=== PATIENT | female | born 1950 | race Hispanic/Latino ===

== ENCOUNTER 2018-07-05 08:47 | Outpatient (CLI) | payer MEDICARE ==
--- NOTE | 2018-07-11 16:56 | MMO ---
Bilateral MAMMO Bilat Screen [facility]. CLINICAL HISTORY: Patient is 68 years old and is seen for screening. The patient has no family history of breast cancer. The patient has no personal history of cancer. VIEWS: The views performed were: bilateral craniocaudal with tomosynthesis and bilateral mediolateral oblique with tomosynthesis. FILMS COMPARED: The present examination has been compared to a prior imaging study performed at MAMMOGRAM FINDINGS: There are scattered fibroglandular densities. There are vascular calcifications seen in both breasts. There are no suspicious masses, suspicious calcifications, or new areas of architectural distortion. IMPRESSION: A ROUTINE FOLLOW-UP MAMMOGRAM IN 1 YEAR IS RECOMMENDED. THE RESULTS OF THIS EXAM WERE SENT TO THE PATIENT. ACR BI-RADS Category 2 - Benign finding MAMMOGRAPHY NOTE: 1. A negative mammogram report should not delay a biopsy if a dominant of clinically suspicious mass is present. 2. Approximately 10% to 15% of breast cancers are not detected by mammography. 3. Adenosis and dense breasts may obscure an underlying neoplasm.
== END 2018-07-05 08:48 | disposition home or self-care (01) ==
LOC: BICMAMMO 08:47
PROVIDERS: ATTEND Family Medicine
DX: Z12.31 Encounter for screening mammogram for malignant neoplasm of breast (principal)
CPT/HCPCS: 77063; 77067

== ENCOUNTER 2018-07-05 12:24 | Day surgery (SDC) | payer MEDICARE ==
--- NOTE | 2018-06-21 11:17 | HP ---
HISTORY OF PRESENT ILLNESS: Altagracia Santana is a 68-year-old Malian-speaking only female, who presents with her son, who is translating for her. The patient complains of pain in the umbilical area when bending over. She feels a painful mass. She has incarcerated umbilical hernia, probably incarcerated fat. She has a small upper abdominal diastasis recti, which is asymptomatic. Plan and recommendation is robot laparoscopic mesh repair, umbilical hernia outpatient. They will call to schedule this. ALLERGIES: NONE. SOCIAL HISTORY: Tobacco, none. Alcohol, none. MEDICATIONS: None. PAST MEDICAL HISTORY: Arthritis. PAST SURGICAL HISTORY: Percutaneous embolization of cerebral aneurysm 2008, appendectomy, open incisions right lower quadrant 2009, knee surgery, knee replacement 2016, total abdominal hysterectomy, bilateral salpingo-oophorectomy 2000 after tubal ligation prior. FAMILY HISTORY: Noncontributory. REVIEW OF SYSTEMS: Ten-point noncontributory. She has had a colonoscopy about 5 years ago. PHYSICAL EXAMINATION: VITAL SIGNS: 138/65, 68, 97.9 degrees, 134 pounds, 5 feet 3 inches. HEAD, EARS, EYES, NOSE, AND THROAT: Unremarkable. LUNGS: Clear to auscultation. CARDIAC: Rhythm without murmur or gallop. ABDOMEN: Soft, nondistended, and nontender except her umbilical area where she has incarcerated umbilical hernia that is tender and painful. I cannot reduce it. I think I see a faint scar in the right lower quadrant. There is no indication for any hernia near this. She has a Pfannenstiel incision suprapubic and no hernias present when patient examined standing on Valsalva and supine Valsalva. EXTREMITIES: Unremarkable. No ankle edema. No lymphadenopathy in neck, axilla, or groins. NEUROLOGIC: Neurologically intact. No focal deficit. ASSESSMENT AND PLAN: Incarcerated umbilical hernia, painful. This cause her pain such that she cannot bend over and put her socks and shoes on. She has to have her family do that. We will plan robot mesh repair umbilical hernia. She understands risks and benefits, and consents. Job ID: [id number]
[2018-07-04 13:05] VITALS: BMI 24.3
[2018-07-05] MEDS ORDERED: Rocuronium Bromide 10 MG/ML (10ML VIAL) ONE (13:38)
[2018-07-05] MEDS ORDERED: Dexamethasone 20 MG/5 ML VIAL ONE (13:38)
[2018-07-05] MEDS ORDERED: Glycopyrrolate 0.2 MG/ML 5 ML SYRINGE ONE (13:38)
[2018-07-05] MEDS ORDERED: Lidocaine 1% PF 5 ML VIAL ONE (13:38)
[2018-07-05] MEDS ORDERED: diphenhydrAMINE 50 MG/ML VIAL ONE (13:38)
[2018-07-05] MEDS ORDERED: Metoclopramide HCl 10 MG/2 ML VIAL ONE (13:38)
[2018-07-05] MEDS ORDERED: Ondansetron PF 4 MG/2 ML Vial ONE (13:38)
[2018-07-05] MEDS ORDERED: ePHEDrine 50 MG/ML VIAL ONE (13:38)
[2018-07-05] MEDS ORDERED: PROPOFOL 200 MG/20 ML VIAL ONE (13:38)
[2018-07-05] MEDS ORDERED: Ketorolac Tromethamine 30 MG/ML VIAL ONE (14:01)
--- NOTE | 2018-07-05 14:02 | RAD ---
CHEST TWO VIEWS: HISTORY: Preop for umbilical hernia. COMPARISON: None. FINDINGS: FINDINGS: Two views of the chest show normal sized cardiomediastinal silhouette. There is no evidence of consol idation, mass, or pleural effusion. Degenerative changes are seen in the spine. IMPRESSION: No evidence of acute cardiopulmonary disease. POS: [facility]
[2018-07-05 14:08] LABS: #Basophils 0.1 thou/uL (0.0-0.2); #Eosinphils 0.1 thou/uL (0.0-0.7); #Monocytes 0.4 thou/uL (0.11-0.59); #Neutrophils 3.3 thou/uL (1.40-6.50); %Basophils 1.3 % (0.0-1.0); %Eosinophils 1.6 % (0.0-10.0); %Lymphocytes 34.7 % (21.0-51.0); %Monocytes 6.5 % (0.0-10.0); %Neutrophils 55.9 % (42.0-75.0); Hemoglobin 13.2 g/dL (12.0-16.0); Mean Corpuscular HGB CONC 32.8 g/dL (32.0-36.0); Mean Corpuscular Hemoglobin 30.2 pg (27.0-31.0); Mean Corpuscular Volume 91.9 fL (78.0-98.0); Mean Platelet Volume 8.8 fL (7.4-10.4); Platelet Count 186 thou/uL (130-400); RBC Distribution Width 11.8 % (11.5-14.5); Red Blood Cell (RBC) Count 4.38 mill/uL (4.20-5.40); White Blood Cell (WBC) Count 5.9 thou/uL (4.8-10.8)
[2018-07-05 14:30] LABS: Anion Gap 10 mmol/L (10-20); BUN (Urea Nitrogen) 13 mg/dL (9.8-20.1); Calc. Creatinine Clearance 79 mL/min (70-130); Calcium 9.6 mg/dL (7.8-10.44); Carbon Dioxide 29 mmol/L (23-31); Chloride 104 mmol/L (98-107); Estimated GFR-MDRD Greater than 90; Glucose 97 mg/dL (80-115); Potassium 4.1 mmol/L (3.5-5.1); Sodium 139 mmol/L (136-145)
[2018-07-05] MEDS ORDERED: Bupivacaine/Epinephrine 0.25% 30 ML VIAL ONE (15:54)
[2018-07-05] MEDS ORDERED: Fentanyl 100 MCG/2 ML VIAL ONE (16:34)
[2018-07-05] MEDS ORDERED: HYDROcodone/Acetaminophen 5/325 mg Tablet ONE (19:58)
--- NOTE | 2018-07-05 21:57 | OP ---
DATE OF PROCEDURE: 07/05/2018 PREOPERATIVE DIAGNOSIS: Umbilical hernia, symptomatic. POSTOPERATIVE DIAGNOSIS: Umbilical hernia, symptomatic. PROCEDURES PERFORMED: Robot 11.4 cm Ventralight mesh repair of umbilical hernia. ANESTHESIA: General, local 0.5% Marcaine with epinephrine 30 mL, total volume used. DESCRIPTION OF PROCEDURE: The patient was taken to the operating room where under general anesthesia, Strickland catheter was placed at the beginning of the procedure and removed at the end. Abdomen was prepared with ChloraPrep, draped in routine fashion. Local anesthetic of 0.5% Marcaine with epinephrine was infiltrated in the skin and subcutaneous tissue about each port site. Left subxiphoid incision was made and pneumoperitoneum to 15 mmHg was obtained with a Veress needle, replaced with 11 port. Bilateral far lateral right and left subcostal incisions were made and an 8-mm port was placed. A robot was docked and instruments inserted, and robot repair of umbilical hernia undertaken. There was incarcerated fat in this umbilical hernia defect and peritoneum was dissected free. The incarcerated fat removed and the fascial defect was closed with continuous suture of #0 V-Loc. Pneumoperitoneum was reduced to 9 mmHg and mesh inserted and oriented properly for the coated side against the viscera and the mesh was secured to the abdominal wall with continuous suture of 2-0 V-Loc. All needles were removed. Pneumoperitoneum was reduced. All instruments were removed and all skin incisions were approximated with interrupted subdermal 4-0 Monocryl and Hennessey glue applied. Job ID: [id number]
== END 2018-07-05 20:25 | disposition home or self-care (01) ==
LOC: SDC 12:24
PROVIDERS: ATTEND Specialist
PROC: 0WUF4JZ Supplement Abdominal Wall with Synthetic Substitute, Percutaneous Endoscopic Approach (ICD-10-PCS; principal; 2018-07-05)
DX: K42.0 Umbilical hernia with obstruction, without gangrene (principal); M19.90 Unspecified osteoarthritis, unspecified site
CPT/HCPCS: 36415; 71046; 80048; 85025; 93005; 93010; C1781; J0131; J0690; J1100; J1200; J1885; J2001; J2405; J2704; J2765; J3010; J3490

== ENCOUNTER 2019-06-08 14:09 | Observation (INO) | payer MEDICARE ==
[~2019-06-08 14:09] MED LIST: Iopamidol 370 76% 100 ML VIAL ONE
--- NOTE | 2019-06-08 14:32 | CT ---
Exam: Brain CT without IV contrast: HISTORY: Level One stroke, headaches since an injury from a fall one week ago tingling on side of body history of brain aneurysm FINDINGS: There is evidence for aneurysm coiling material in the region of the left temporal lobe. A prior old exam from 01/18/2009 demonstrated left-sided subarachnoid hemorrhage. There is no evidence for acute hemorrhage. No mass effect or midline shift. Sinuses and mastoids are clear. IMPRESSION: Evidence for prior aneurysm coiling in the left temporal lobe region. No mass or bleed or other acute process. Findings discussed with Dr. Mckeon in the emergency room at 2:25 PM CODE CR
[2019-06-08 14:43] LABS: #Eosinphils 0.1 thou/uL (0.0-0.7); #Lymphocytes 1.6 thou/uL (1.20-3.40); #Monocytes 0.4 thou/uL (0.11-0.59); #Neutrophils 5.2 thou/uL (1.40-6.50); %Basophils 0.2 % (0.0-1.0); %Eosinophils 1.8 % (0.0-10.0); %Lymphocytes 22.1 % (21.0-51.0); %Monocytes 4.8 % (0.0-10.0); %Neutrophils 71.1 % (42.0-75.0); Hemoglobin 11.8 g/dL (12.0-16.0); Mean Corpuscular HGB CONC 33.6 g/dL (32.0-36.0); Mean Corpuscular Hemoglobin 30.4 pg (27.0-31.0); Mean Corpuscular Volume 90.4 fL (78.0-98.0); Mean Platelet Volume 8.4 fL (7.4-10.4); Platelet Count 249 thou/uL (130-400); RBC Distribution Width 12.6 % (11.5-14.5); Red Blood Cell (RBC) Count 3.89 mill/uL (4.20-5.40); White Blood Cell (WBC) Count 7.3 thou/uL (4.8-10.8)
--- NOTE | 2019-06-08 14:58 | CT ---
EXAM: CT ANGIOGRAM OF THE HEAD AND NECK INDICATION: Dull headache since fall one week ago. Tingling on one side of the body. History of aneur ysm. COMPARISON: None TECHNIQUE: CT angiogram of the head and neck are performed in the axial plane. Three-dimensional refo rmatted images are submitted for interpretation. FINDINGS: CTA OF THE HEAD WITH AND WITHOUT CONTRAST: POSTCONTRAST CT OF BRAIN: Pathologic enhancement: No pathologic enhancement the brain. Postcontrast soft tissue neck CT: Sinuses: Adequate aeration. Orbits: Bilateral ocular lenses are appropriately located. Both globes are intact. Retrobulbar fat is preserved. Symmetric attenuation the optic nerves and ocular rectus muscles. Salivary glands:Symmetric attenuation Thyroid gland: Slightly heterogeneous. Lymph nodes: No evidence of lymphadenopathy by size criteria. Paraspinal muscles: Symmetric attenuation of the sternocleidomastoid muscles. Appropriate attenuation of the paraspinal muscles. Subcutaneous emphysema and induration in the right periclavicular region. Correlate for attempt at recent vascular access. Cervical spine:Multilevel degenerative changes of the cervical spine. Varying degrees of central samuel l stenosis and neural foraminal narrowing due to degenerative change. No fracture. Upper mediastinum and lung apices: No acute abnormality. Chronic lung parenchymal changes. CTA OF THE NECK WITH CONTRAST: Aorta: Atherosclerosis of the aortic knob. Right carotid artery: Right carotid artery origin, common carotid artery, carotid bifurcation and int ernal carotid artery of appropriate enhancement and luminal diameter. There is calcified plaque in the right carotid bifurcation and proximal internal carotid artery. Additional minimal calcified plaq ue in the distal common carotid artery. No significant stenosis based upon NASCET criteria Left carotid: Left carotid artery origin is appropriate enhancement and luminal diameter. The left co mmon carotid, carotid bifurcation and internal cardioverter appropriate enhancement and luminal diameter. No significant stenosis based upon NASCET criteria Subclavian arteries:Patent and symmetric Vertebral arteries:Left vertebral artery is patent throughout its course in the neck. Diminutive righ t vertebral artery. CTA OF THE BRAIN: Intracranial internal carotid arteries:Appropriate enhancement and luminal diameter Anterior circulation: Appropriate enhancement and luminal diameter the A1 and M1 segments. 0.7 x 0.7: No mass in the left M1 trifurcation. No obvious residual aneurysm. Beam attenuation artifact limits evaluation. Intracranial vertebral arteries: Right vertebral artery appears of the PICA terminus. Left vertebral artery appears to be the main if not sole supplying vessel to the basilar artery. Posterior circulation: Appropriate enhancement and luminal diameter the basilar artery. Appropriate e nhancement and luminal diameter bilateral P1 segments IMPRESSION: 1. No hemodynamically significant stenosis, occlusion or aneurysmal formation. Likely. Additional fin dings as above. 3. Results study discussed with Dr. Mckeon 06/08/2019 2:53 PM code CR
--- NOTE | 2019-06-08 15:03 | RAD ---
Exam: Chest one view HISTORY:Altered mental status Comparison: 01/22/2009 FINDINGS: Cardiac silhouette:Cardiomegaly. Aorta: Unremarkable Pulmonary vessels: Normal Costophrenic angles: Clear LUNGS: No masses or consolidation. Pneumothorax: None Osseous abnormalities: None IMPRESSION: No acute cardiopulmonary process.
[2019-06-08 15:06] LABS: ALT (SGPT) 13 U/L (8-55); AST (SGOT) 19 U/L (5-34); Alkaline Phosphatase 114 U/L (40-110); Anion Gap 15 mmol/L (10-20); BUN (Urea Nitrogen) 14 mg/dL (9.8-20.1); Bilirubin, Total 0.5 mg/dL (0.2-1.2); CK (CPK) 114 U/L (29-168); Calc. Creatinine Clearance 0 mL/min (70-130); Calcium 9.5 mg/dL (7.8-10.44); Carbon Dioxide 27 mmol/L (23-31); Chloride 105 mmol/L (98-107); Estimated GFR-MDRD 90; Globulin 3.1 g/dL (2.4-3.5); Glucose 104 mg/dL (80-115); Lipase 30 U/L (8-78); Potassium 3.8 mmol/L (3.5-5.1); Protein, Total 7.1 g/dL (6.0-8.3); Sodium 143 mmol/L (136-145)
[2019-06-08] MEDS ORDERED: Metoclopramide HCl 10 MG/2 ML VIAL ONE (16:05)
[2019-06-08] MEDS ORDERED: Aspirin Chewable 81 MG TAB ONE (16:05)
[2019-06-08] MEDS ORDERED: Acetaminophen 500 MG TAB ONE (16:05)
[2019-06-08] MEDS ORDERED: diphenhydrAMINE 50 MG/ML VIAL ONE (16:05)
[2019-06-08] MEDS ORDERED: Ondansetron PF 4 MG/2 ML Vial IVP PRN (17:50)
[2019-06-08] MEDS ORDERED: Ondansetron ODT 4 MG TAB SL PRN (17:50)
[2019-06-08 18:12] VITALS: BMI 22.5
[2019-06-08] MEDS ORDERED: traMADol HCl 50 MG TAB PO PRN (20:09)
--- NOTE | 2019-06-08 22:23 | HP ---
TIME OF ASSESSMENT: 1800 hours. CHIEF COMPLAINT: Frontal headache with left arm heaviness. PRIMARY CARE PHYSICIAN: Honey Leyva MD HISTORY OF PRESENT ILLNESS: Ms. Macias is a pleasant Polish-speaking 69-year -old woman, who presents to the emergency department due to a persisting frontal headache since yesterday evening. The patient states the pain gradually became worse today and states she had some blurred vision associated with the headache. She states she was concerned due to a history of a brain aneurysm for which she had percutaneous embolization in 2008. This prompted her to come in and seek medical attention as the pain became a 7/10 in severity. She denies any associated nausea or vomiting. Denies any fever. Denies any facial numbness, weakness, or slurred speech. Reports noting while she was en route to the hospital a heaviness in the left upper extremity, but did not experience any numbness. Denies any lower extremity weakness or numbness. When she was treated in the emergency department, she states her symptoms improved and she is now asymptomatic but feels worn out. ED COURSE: In the emergency department, she was given extra strength Tylenol 1000 mg p.o., 500 mL of normal saline, Reglan, Benadryl and [address] of the head was done showing evidence for prior aneurysm coiling in the left temporal lobe region with no mass, bleed, or other acute process. This was compared to an old exam in December 2008, where she had a left-sided subarachnoid hemorrhage. No evidence for acute hemorrhage on imaging today. CT angiogram of the head and neck showed no hemodynamically significant stenosis , occlusion, or aneurysmal formation. An EKG was done, which was unremarkable. Laboratory studies showed a hemoglobin of 11.8, hematocrit 35.1, otherwise unremarkable. She was noted to have an alkaline phosphatase of 114. Renal function is normal. LFTs unremarkable. BNP 93.7, and troponin negative. PAST MEDICAL HISTORY: 1. Left subarachnoid hemorrhage in December 2008. 2. Arthritis. PAST SURGICAL HISTORY: 1. Total abdominal hysterectomy and bilateral salpingo-oophorectomy. 2. Right knee replacement. 3. Right arm rotator cuff repair. 4. Hernia repair. 5. Recent fracture requiring surgery of the right upper extremity. 6. 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 7. Umbilical hernia repair. SOCIAL HISTORY: The patient denies any tobacco use, alcohol consumption, or illicit drug use. She lives with her family and is fully independent. She mobilizes without the use of assistive devices. FAMILY HISTORY: Noncontributory. ALLERGIES: NO KNOWN DRUG ALLERGIES. CURRENT MEDICATIONS: 1. Tramadol. 2. Tylenol. PHYSICAL EXAMINATION: GENERAL: The patient appears fatigued, but is in no acute distress. VITAL SIGNS: Temperature 98.4, pulse 62, respirations 12, O2 saturation 98% on room air, blood pressure 123/57. HEENT: Normocephalic and atraumatic. Pupils are equal, round, and reactive to light. Sclerae are without icterus. Oropharynx is clear. NECK: Supple. LUNGS: Clear to auscultation bilaterally without any wheezes, rales, or rhonchi. CARDIAC: Regular rate and rhythm. ABDOMEN: Soft, nontender, nondistended. Normoactive bowel sounds present. No guarding or rigidity. No renal angle tenderness. EXTREMITIES: No lower leg swelling or edema. NEUROLOGIC: Alert and oriented x3. Facial movements normal. Facial sensation intact. Speech normal. Able to follow commands. Power 5/5 in upper and lower extremities. Normal muscle tone. No focal deficits on exam. SKIN: Warm and dry. INVESTIGATIONS: As mentioned above in HPI. IMPRESSION AND PLAN: Ms. Santana is a 69-year-old woman, who presents with complaints of a progressively worsening headache associated with left upper extremity heaviness. She is being admitted for management of the following. 1. Transient ischemic attack, rule out. The patient is currently asymptomatic. CT head showed no acute changes and CT angiogram was also unremarkable. There was a suggestion by the ED physician for MRI of the brain. The patient did not experience any neuro deficits, but did have some heaviness in the left arm that has fully resolved. She never experienced weakness or numbness. No slurred speech or facial weakness. Consult has been placed to Neuro. Further imaging as per other recommendation. The patient is being admitted to Stroke for continued observation and neuro checks. 2. Headache. Has fully resolved with medications given in the ED, which included Reglan, Benadryl, and Tylenol. 3. Right shoulder injury with recent surgery. We will continue tramadol for pain. 4. Gastrointestinal prophylaxis with famotidine. 5. Deep venous thrombosis prophylaxis. The patient is ambulatory. We will consult walking program. We will hold pharmacoprophylaxis. 6. Code status full. Surrogate decision maker is her son, Danish Santana. Case discussed with attending who agrees with plan of care as described above. Job ID: [id number] [facility]
[2019-06-09 05:21] LABS: Cardiac Risk 4.9 (Less than 4.5)
[2019-06-09] MEDS ORDERED: Famotidine 20 MG TAB PO SCH (09:00)
[2019-06-09] MEDS ORDERED: FLU VACC TS2019-20(65YR UP)/PF 180 MCG/0.5 ML SYRINGE IM ONE (09:00)
--- NOTE | 2019-06-09 13:54 | MRI ---
MRI BRAIN WITHOUT CONTRAST: HISTORY: TIA. FINDINGS: Correlation is made with the previous day's CT scan. No restricted diffusion is seen. There is blooming artifact due to aneurysm coiling material in the region of the left middle cranial fossa. No evidence of infarct, hemorrhage, midline shift, or abnor mal extraaxial fluid collections are seen. There are changes of mild chronic small-vessel ischemic d isease in the periventricular white matter. The ventricular size is normal and the basilar cisterns are patent. IMPRESSION: No evidence of acute intracranial process. POS: [facility]
[2019-06-09 15:46] VITALS: BP 107/63; TEMP 99
--- NOTE | 2019-06-09 16:27 | CON ---
DATE OF CONSULTATION: 06/09/2019 CONSULTING PHYSICIAN: Hospitalist Service. IMPRESSION: Headache, likely secondary to Ultram. PLAN: 1. Discontinue Ultram. 2. Follow up with her Orthopedic Surgeon. Follow up on the pain medications. HISTORY OF PRESENT ILLNESS: Ms. Max Macias is a 69-year-old woman, who presented to the emergency room with acute onset of headache and a feeling that her left shoulder was a bit heavy. She also complained of some blurred vision. She had been using Ultram for pain relief following some recent shoulder problem. She has a past history of cerebral aneurysm with prior embolization in 2008. Pain level was reported to be 7/10. There was no fever or other constitutional symptoms. She did not have any slurred speech or other focal neurologic complaints. Her initial CT of the brain was unremarkable as well as a CT angiogram. Followup MRI did not reveal any evidence of an acute ischemic event. Her headache has since resolved. She has not had any fever since admission. She is otherwise without any particular complaints. PAST MEDICAL HISTORY: Otherwise, unremarkable. ALLERGIES: NONE. SOCIAL HISTORY: No tobacco or alcohol. FAMILY HISTORY: Noncontributory. REVIEW OF SYSTEMS: Ten-system review of systems is otherwise unremarkable. PHYSICAL EXAMINATION: VITAL SIGNS: Blood pressure 103/60, pulse 66, respirations 26, and temperature 99.2. HEENT: Pupils are equal. Conjunctivae are clear. Oropharynx clear. Cranium; normocephalic and atraumatic. NECK: Supple. EXTREMITIES: No cyanosis. NEUROLOGIC: She is alert and cooperative. Her speech is fluent and clear. She has no focal deficits. No abnormal movements were seen. She can walk independently. SUMMARY: This is a 69-year-old woman, who came in with complaints of a fairly significant headache. Ultram is reported to precipitate headache in some patient. Her workup is otherwise negative. I think that she can be discharged home. Job ID: [id number]
--- NOTE | 2019-06-10 14:58 | EKG ---
Test Reason : Blood Pressure : / mmHG Vent. Rate : 065 BPM Atrial Rate : 065 BPM P-R Int : 158 ms QRS Dur : 082 ms QT Int : 380 ms P-R-T Axes : 035 009 065 degrees QTc Int : 395 ms Normal sinus rhythm Normal ECG Confirmed by NEIDA HERNANDEZ, J CARLOS ([id number]), multimedia editor MARIA DEL CARMEN COFFEY ([id number]) on 06/10/2019 2:58:29 PM Referred By: Confirmed By:J CARLOS CARRASQUILLO MD
--- NOTE | 2019-06-12 08:53 | DIS ---
DATE OF ADMISSION: 06/08/2019 DATE OF DISCHARGE: 06/09/2019 DISCHARGE DIAGNOSES: 1. Headache possibly secondary to migraine versus tramadol 2. Anemia 3. Elevated ALP CONSULTATIONS: Dilan Parker with Neurology. PROCEDURES: None. BRIEF HISTORY OF PRESENT ILLNESS: This is a 69-year-old female with a past medical history of a brain aneurysm status post coiling, who presented to the emergency room with severe headache. The patient states that her headache woke her up from her sleep. She said it was about a 7/10. She took some Tylenol with mild relief. She then took tramadol and her headache continued to get worse. She did report some photophobia, but had no nausea or vomiting. She also had some arm heaviness in her left arm; however, she was still able to lift it up without any issues. She had no slurred speech. No difficulty walking. She does have a fracture in her right arm that was recently operated on. The patient states that her headache lasted until she received Reglan, Benadryl, and aspirin in the emergency room. She states that her headache had gone down to 3/10. She was admitted for TIA workup. She did have a CT scan of her head in the ER, which was unremarkable. HOSPITAL COURSE: Headache, most likely secondary to migraine versus adverse reaction from tramadol: CTA of her head and neck showed no significant stenosis. MRI was normal with no evidence of a stroke. The patient did not have any focal neurological deficits on exam. On discharge, she was seen by Neurology, who recommended the patient discontinue her Ultram due to possible adverse reaction. There was no concern for TIA. She did have an echo, which showed no thrombus. She will follow up with her PCP in a week. She was advised to make a journal of headache triggers to avoid potential headaches in the future. She is advised she can take ibuprofen p.r.n. for her headaches. Anemia: The patient did have a hemoglobin of 11.8. She denies any dizziness. She can have a repeat CBC as an outpatient with her PCP. Elevated alkaline phosphatase: This is noted to be 114. This can be repeated as an outpatient. She denies any abdominal pain on the day of discharge. DISCHARGE PHYSICAL EXAMINATION: VITAL SIGNS: Temperature 99, heart rate 65, respiratory rate 16, O2 saturation 98% on room air, and blood pressure 107/63. GENERAL: The patient is alert, awake, and oriented x3. CVS: Regular rate and rhythm with no murmurs, rubs, or gallops. NEURO: Cranial nerves 2 through 12 are intact. She has 5/5 strength in her left upper, right lower, and left lower extremities. Right upper extremity strength testing deferred due to fracture on right arm. CVS: Regular rate and rhythm. No murmurs, rubs, or gallops. LUNGS: Clear to auscultation bilaterally. ABDOMEN: Positive bowel sounds, soft, nontender, and nondistended. EXTREMITIES: Right upper extremity is slightly weak from the fracture. EYES: The patient reports slight blurry vision because she is not wearing her glasses. Her pupils are equal and reactive to light. Extraocular muscles are intact. PERTINENT LABORATORY DATA: CBC on 06/07: Hemoglobin 11.8, hematocrit 35.1. BMP on 06/07: Normal. LFTs: AST 19, ALT 13, and alkaline phosphatase 114. CK: 114. Troponin I: Less than 0.010. Lipid panel: Triglyceride 133, cholesterol 165, LDL 104, HDL 34, and lipase 30. IMAGING STUDIES: CT head on 06/07: Evidence for prior aneurysm coiling in the left temporal region. No mass or bleed. CTA head and neck: No hemodynamically significant stenosis. MRI brain: No evidence of acute intracranial process. Echo: EF 55% to 60%, diastolic dysfunction. Mild MR. DISCHARGE CONDITION: Stable. ACTIVITY: As tolerated. DIET: Regular diet. DISCHARGE INSTRUCTIONS: The patient is to follow up with her PCP in a week. She should consider migraine prophylaxis if her headaches persist. She should have CBC followed up for reevaluation of anemia and repeat LFTs for re-evaluation of elevated alkaline phosphatase. Job ID: [id number] [facility]
== END 2019-06-09 17:56 | disposition home or self-care (01) ==
LOC: ERS 14:09 → 2SE 17:38
PROVIDERS: ADMIT Internal Medicine; ATTEND Internal Medicine
DX: R51 Headache (principal); D64.9 Anemia, unspecified; R74.8 Abnormal levels of other serum enzymes; Z86.79 Personal history of other diseases of the circulatory system
CPT/HCPCS: 70450; 70496; 70498; 70551; 71045; 80053; 80061; 82550; 82962; 83690; 83880; 84484; 85025; 90662; 93005; 93306; 97139; G0008; 36415; 36416; 90471; 96365; 96375; G0378; J1200; J2765; Q9967

== ENCOUNTER 2019-12-27 08:57 | Outpatient (CLI) | payer MEDICARE ==
--- NOTE | 2019-12-27 10:40 | BD ---
BONE DENSITOMETRY USING DEXA: Date: 12/27/2019 HISTORY: Screening for postmenopausal osteoporosis. FINDINGS: Lumbar Spine: BMD (g/cm2) L1 0.744 T-Score: -2.2 Z-Score: -0.3 L2 0.880 T-Score: -1.3 Z-Score: 0.8 L3 0.829 T-Score: -2.3 Z-Score: -0.1 L4 0.768 T-Score: -2.7 Z-Score: -0.4 L1-L4 0.799 T-Score: -2.3 Z-Score: -0.1 Femoral Neck: 0.597 T-Score: -2.3 Z-Score: -0.6 Total Femur: 0.729 T-Score: -1.7 Z-Score: -0.2 The 10 year fracture risk for a major osteoporotic fracture is 18% and for a hip fracture is 4.6%. IMPRESSION: Osteopenia. POS: [facility]
== END 2019-12-27 08:58 | disposition home or self-care (01) ==
LOC: BICMAMMO 08:57
PROVIDERS: ATTEND Physician Assistant Medical
DX: Z13.820 Encounter for screening for osteoporosis (principal); M85.89 Other specified disorders of bone density and structure, multiple sites
CPT/HCPCS: 77080

== ENCOUNTER 2020-08-30 12:40 | Outpatient (CLI) | payer MEDICARE | END 2020-08-30 12:41 | disposition home or self-care (01) | LOC: BICMAMMO 12:40 | PROVIDERS: ATTEND Physician Assistant Medical | DX: Z12.31 Encounter for screening mammogram for malignant neoplasm of breast (principal) | CPT/HCPCS: 77063; 77067 ==

== ENCOUNTER 2021-02-27 12:11 | Outpatient (CLI) | payer MEDICARE | END 2021-02-27 12:12 | disposition home or self-care (01) | LOC: BICCT 12:11 | PROVIDERS: ATTEND Nurse Practitioner Family | DX: I67.1 Cerebral aneurysm, nonruptured (principal); E78.5 Hyperlipidemia, unspecified; I10 Essential (primary) hypertension; F41.9 Anxiety disorder, unspecified; Z98.890 Other specified postprocedural states | CPT/HCPCS: 70450 ==

== ENCOUNTER 2021-07-22 08:01 | Outpatient (CLI) | payer MEDICARE | END 2021-07-22 08:02 | disposition home or self-care (01) | LOC: BICMAMMO 08:01 | PROVIDERS: ATTEND Internal Medicine Rheumatology | DX: M81.0 Age-related osteoporosis without current pathological fracture (principal); M85.89 Other specified disorders of bone density and structure, multiple sites | CPT/HCPCS: 77080 ==

== ENCOUNTER 2022-12-03 10:21 | Outpatient (CLI) | payer MEDICARE | END 2022-12-03 10:22 | disposition home or self-care (01) | LOC: RAD 10:21 | PROVIDERS: ATTEND Nurse Practitioner Family | DX: R09.89 Other specified symptoms and signs involving the circulatory and respiratory systems (principal); R05.9 Cough, unspecified; R53.83 Other fatigue; R52 Pain, unspecified | CPT/HCPCS: 36415; 71046; 80053; 81001; 83880; 84443; 85025; 87086 ==

== ENCOUNTER 2023-02-25 07:45 | Outpatient (CLI) | payer MEDICARE | END 2023-02-25 07:46 | disposition home or self-care (01) | LOC: BICMAMMO 07:45 | PROVIDERS: ATTEND Nurse Practitioner Family | DX: Z12.31 Encounter for screening mammogram for malignant neoplasm of breast (principal) | CPT/HCPCS: 77063; 77067 ==

== ENCOUNTER 2023-03-03 18:01 | Outpatient (CLI) | payer MEDICARE | END 2023-03-03 18:02 | disposition home or self-care (01) | LOC: SJX 18:01 | PROVIDERS: ATTEND Family Medicine | DX: S69.91XA Unspecified injury of right wrist, hand and finger(s), initial encounter (principal) ==

== ENCOUNTER 2023-04-13 09:49 | Outpatient (CLI) | payer MEDICARE | END 2023-04-13 09:50 | disposition home or self-care (01) | LOC: BICRAD 09:49 | PROVIDERS: ATTEND Nurse Practitioner Family | DX: M47.26 Other spondylosis with radiculopathy, lumbar region (principal); M25.551 Pain in right hip; M41.9 Scoliosis, unspecified; M51.16 Intervertebral disc disorders with radiculopathy, lumbar region; M16.11 Unilateral primary osteoarthritis, right hip | CPT/HCPCS: 72120 ==

== ENCOUNTER 2023-04-22 12:41 | Outpatient (CLI) | payer MEDICARE | END 2023-04-22 12:42 | disposition home or self-care (01) | LOC: SCSMRI 12:41 | PROVIDERS: ATTEND Nurse Practitioner Family | DX: M54.16 Radiculopathy, lumbar region (principal); M48.061 Spinal stenosis, lumbar region without neurogenic claudication; M41.9 Scoliosis, unspecified | CPT/HCPCS: 72148 ==

== ENCOUNTER 2023-08-18 07:57 | Outpatient (CLI) | payer MEDICARE | END 2023-08-18 07:58 | disposition home or self-care (01) | LOC: BICMAMMO 07:57 | PROVIDERS: ATTEND Internal Medicine Rheumatology | DX: M81.0 Age-related osteoporosis without current pathological fracture (principal); M85.851 Other specified disorders of bone density and structure, right thigh; M85.852 Other specified disorders of bone density and structure, left thigh | CPT/HCPCS: 77080 ==